=== PATIENT | female | born 2005 | race Caucasian/White ===

== ENCOUNTER 2024-05-05 17:30 | Emergency (ER) | payer OTHER, SELFPAY ==
[2024-05-05 17:40] VITALS: BP 124/79; PULSE 67; TEMP 36.7; O2SAT 99
--- NOTE | 2024-05-05 17:57 | ED_ITS ---
HPI - Abdominal Pain General Chief Complaint: Abdominal Pain Stated Complaint: Abdominal Pain Time Seen by Provider: 05/05/24 17:36 Source: patient Mode of arrival: walk-in Limitations: no limitations History of Present Illness HPI narrative: Patient is a 18-year-old female who presents to the emergency department for evaluation of urinary urgency that began today. She states she has the sensation that she has to urinate but is not producing much urine, she has now developed right lower quadrant pain and right flank pain this afternoon. Motrin taken 1 hour prior to arrival. She denies objective fevers. Yesterday she had multiple episodes of vomiting. Mother at bedside states that the patient was sick last week with upper respiratory symptoms. She has no other major medical history. The patient denies a possibility of . She has not had any blood in her urine. She has had nausea today but no additional episodes of emesis. Related Data Home Medications ?Medication ?Instructions ?Recorded ?Confirmed bupropion HCl 150 mg 24 hr tablet, 150 mg PO QDAY 05/05/24 05/05/24 extended release ibuprofen 200 mg tablet (Addaprin) 600 mg PO ONCE 05/05/24 05/05/24 norelgestromin 150 mcg-e.estradiol 1 patch topical Q7D 05/05/24 05/05/24 35 mcg/24 hr weekly transderm patch (Xulane) topiramate 100 mg tablet 250 mg PO .qhs 05/05/24 05/05/24 Previous Rx's ?Medication ?Instructions ?Recorded cephalexin 500 mg capsule 500 mg PO Q8H 7 days #21 caps 05/05/24 ketorolac 10 mg tablet 10 mg PO TID PRN pain #10 tabs 05/05/24 ondansetron 4 mg disintegrating 4 mg PO Q6H PRN nausea and 05/05/24 tablet vomiting #12 tabs oxycodone-acetaminophen 5 mg-325 1 tab PO Q6H PRN pain 4 days #15 05/05/24 mg tablet (Percocet) tabs tamsulosin 0.4 mg capsule (Flomax) 0.4 mg PO DAILY #7 caps 05/05/24 Allergies Allergy/AdvReac Type Severity Reaction Status Date / Time No Known Drug Allergies Allergy Verified 05/05/24 17:37 Review of Systems ROS Constitutional Denies: fever or chills Ears, nose, mouth, and throat Reports: nasal congestion; Denies: throat pain Cardiovascular Denies: chest pain Respiratory Reports: cough; Denies: shortness of breath Gastrointestinal Reports: abdominal pain, nausea and vomiting; Denies: diarrhea Genitourinary Reports: urinary urgency Musculoskeletal Reports: back pain; Denies: neck pain Integumentary/Breast Denies: rash Neurological Denies: numbness in extremities or weakness in extremities Hematologic/Lymphatic Denies: easy bruising or easy bleeding PFSH PFSH Social History Little interest or pleasure in doing things: not at all Feeling down, depressed, or hopeless: not at all Exam Narrative Exam Narrative: Gen.: Awake, alert, in no distress Head: Normocephalic, atraumatic ENT: Moist mucous membranes Respiratory: No respiratory distress Gastrointestinal: Abdomen is soft, nondistended and mildly tender in the suprapubic and right lower quadrant of the abdomen with no McBurney's point tenderness. No guarding or rebound. Patient has no pain out of proportion on exam, mild tenderness of the right flank with no CVA tenderness Extremities: Moves extremities equally Psych: Normal mood and affect Neuro: No focal neuro deficit Skin: Warm, dry, intact Constitutional Vital Signs, click to edit/add: Last Vital Signs Temp 98.1 F 05/05/24 17:40 Pulse 71 05/05/24 19:28 Resp 18 05/05/24 19:28 BP 141/83 05/05/24 19:28 Pulse Ox 99 05/05/24 19:28 O2 Del Method Room Air 05/05/24 19:28 Course Vital Signs Vital signs: Vital Signs Temperature 98.1 F 05/05/24 17:40 Pulse Rate 67 05/05/24 17:40 Respiratory Rate 18 05/05/24 17:40 Blood Pressure 124/79 05/05/24 17:40 Pulse Oximetry 99 05/05/24 17:40 Oxygen Delivery Method Room Air 05/05/24 17:40 Temperature 98.1 F 05/05/24 17:40 Pulse Rate 71 05/05/24 19:28 Respiratory Rate 18 05/05/24 19:28 Blood Pressure 141/83 05/05/24 19:28 Pulse Oximetry 99 05/05/24 19:28 Oxygen Delivery Method Room Air 05/05/24 19:28 MDM - Abdominal Pain MDM Narrative Medical decision making narrative: Patient treated with IV fluids, morphine, Zofran with improvement. She did have a return of pain and was remedicated with Toradol and Dilaudid. Laboratory studies reviewed and noted within normal limits, no evidence of sepsis and no significant infection noted. On CT, patient was found to have a 3 mm stone at the right UVJ with mild obstructive uropathy. She was given her results and will be placed on Percocet, Flomax, Toradol, Zofran, Keflex for home. Follow-up with urology and return to the emergency department if symptoms change or worsen. SUPERVISED APC VISIT, PHYSICIAN ATTESTATION: Based on the medical record the care appears appropriate. ? Medical Records Attestation: I reviewed the patient's medical records. Lab Data Attestation: I reviewed the patient's lab results. Labs: Lab Results 05/05/24 05/05/24 Range/Units 17:50 18:00 WBC 10.8 (4.0-11.0) 10^3/uL RBC 4.43 (4.20-5.40) 10^6/uL Hgb 13.3 (12.0-16.0) g/dL Hct 39.5 (36.0-48.0) % MCV 89.2 (81.0-99.0) fL MCH 30.0 (26.7-34.0) pg MCHC 33.7 (29.9-35.2) g/dL RDW 11.7 (11.0-15.0) % Plt Count 260 (150-450) 10^3/uL MPV 11.1 (9.5-13.5) fL Neut % (Auto) 54.1 (43.0-75.0) % Lymph % (Auto) 35.7 (20.5-60.0) % [place]cd[place] % (Auto) 8.2 (1.7-12.0) % Eos % (Auto) 1.3 (0.9-7.0) % Baso % (Auto) 0.6 (0.2-2.0) % Neut # (Auto) 5.8 (1.4-6.5) 10^3/uL Lymph # (Auto) 3.8 (1.2-3.8) 10^3/uL Mcdonough # (Auto) 0.9 H (0.3-0.8) 10^3/uL Eos # (Auto) 0.1 (0.0-0.7) 10^3/uL Baso # (Auto) 0.1 (0.0-0.1) 10^3/uL Abs Immat Gran (auto) 0.01 (0.00-0.03) 10^3/uL Imm/Tot Granulo (auto) 0.1 (0.0-0.5) % Sodium 142 (136-145) mmol/L Potassium 3.5 (3.5-5.1) mmol/L Chloride 105 (98-107) mmol/L Carbon Dioxide 25.4 (21.0-32.0) mmol/L Anion Gap 15.1 BUN 12.0 (7.0-18.0) mg/dL Creatinine 0.98 (0.55-1.02) mg/dL Est GFR ( Amer) >60 (>=60 mL/min/1.73m^2) Est GFR (Non-Af Amer) >60 (>=60 mL/min/1.73m^2) BUN/Creatinine Ratio 12.2 Glucose 85 (74-106) mg/dL Lactate 1.3 (0.4-2.0) mmol/L Calcium 9.3 (8.5-10.1) mg/dL Total Bilirubin 0.5 (0.2-1.0) mg/dL AST 12 L (15-37) U/L ALT 23 (14-59) U/L Alkaline Phosphatase 58 (46-116) U/L Total Protein 7.3 (6.4-8.2) g/dL Albumin 4.1 (3.4-5.0) g/dL Globulin 3.2 g/dL Albumin/Globulin Ratio 1.3 Urine Color Dk orange A (YELLOW) Urine Clarity Slightly cloudy A (CLEAR) Urine pH Ci (5.0-9.0) Ur Specific [place] 1.015 (1.005-1.025) Urine Protein Ci (NEG/TRACE) mg/dL Urine Glucose (UA) Ci (NEGATIVE) mg/dL Urine Ketones Ci (NEGATIVE) mg/dL Urine Occult Blood Ci (NEGATIVE) Urine Nitrite Ci (NEGATIVE) Urine Bilirubin Ci (NEGATIVE) Urine Urobilinogen Ci (0.2-1.0) EU/dL Ur Leukocyte Esterase Ci (NEGATIVE) Urine RBC 20-50 A (0-2) #/HPF Urine WBC 2-5 A (NONE SEEN) #/HPF Ur Squamous Epith Cells Few A (NONE/RARE) #/LPF Urine Crystals None seen (None Seen) #/HPF Urine Bacteria Small A (NONE SEEN) #/HPF Urine Casts None seen (NONE SEEN) #/LPF Urine Mucus Small A (NONE SEEN) Ur Culture Indicated? Yes-[facility] [place] Urine HCG, Qual Negative (NEGATIVE) Imaging Data CT scan - abdomen: Attestation: I have reviewed the pertinent imaging results. Radiologist's impression: 3 mm stone right ureterovesical junction causing mild obstructive uropathy Discharge Plan Discharge Chief Complaint: Abdominal Pain Clinical Impression: Kidney stone, Acute flank pain Patient Disposition: Home, Self-Care Time of Disposition Decision: 19:28 Condition: Good Prescriptions / Home Meds: New ketorolac 10 mg tablet 10 mg PO TID PRN (Reason: pain) Qty: 10 0RF oxycodone-acetaminophen [Percocet] 5-325 mg tablet 1 tab PO Q6H PRN (Reason: pain) 4 Days Qty: 15 0RF Rx Instructions: DX: N20.0 tamsulosin [Flomax] 0.4 mg capsule 0.4 mg PO DAILY Qty: 7 0RF cephalexin 500 mg capsule 500 mg PO Q8H 7 Days Qty: 21 0RF ondansetron 4 mg tablet,disintegrating 4 mg PO Q6H PRN (Reason: nausea and vomiting) Qty: 12 0RF No Action norelgestromin-ethin.estradiol [Xulane] 150-35 mcg/24 hr patch weekly 1 patch topical Q7D topiramate 100 mg tablet 250 mg PO .qhs bupropion HCl 150 mg tablet extended release 24 hr 150 mg PO QDAY ibuprofen [Addaprin] 200 mg tablet 600 mg PO ONCE Rx Instructions: 1 .5 hoursago Print Language: Indonesian Instructions: Kidney Stones (ED) Referrals: Ruthy Wilson MD [Physician] - 1 week DEEP COBIAN [Primary Care Provider] - 1 week
[2024-05-05] MEDS: 0.9 % SODIUM CHLORIDE 1,000 ML 1000 ML IV (18:03)
[2024-05-05] MEDS: ONDANSETRON PF 4 MG/2 ML VIAL IV (18:04)
[2024-05-05] MEDS: MORPHINE SULFATE 4 MG/ML VIAL IV (18:04)
[2024-05-05 18:13] LABS: Basophils Absolute Auto 0.1 10^3/uL (0.0-0.1); Basophils Percent Auto 0.6 % (0.2-2.0); Eosinophils Absolute Auto 0.1 10^3/uL (0.0-0.7); Eosinophils Percent Auto 1.3 % (0.9-7.0); Hematocrit 39.5 % (36.0-48.0); Hemoglobin 13.3 g/dL (12.0-16.0); Immature Granulocytes Abs Auto 0.01 10^3/uL (0.00-0.03); Immature Granulocytes Pct Auto 0.1 % (0.0-0.5); Lymphocytes Absolute Auto 3.8 10^3/uL (1.2-3.8); Lymphocytes Percent Auto 35.7 % (20.5-60.0); Mean Corpuscular HGB Conc 33.7 g/dL (29.9-35.2); Mean Corpuscular Volume 89.2 fL (81.0-99.0); Mean Platelet Volume 11.1 fL (9.5-13.5); Monocytes Absolute Auto 0.9 10^3/uL (0.3-0.8); Monocytes Percent Auto 8.2 % (1.7-12.0); Neutrophils Absolute Auto 5.8 10^3/uL (1.4-6.5); Neutrophils Percent Auto 54.1 % (43.0-75.0); Platelet Count 260 10^3/uL (150-450); Red Blood Count 4.43 10^6/uL (4.20-5.40); Red Cell Distribution Width 11.7 % (11.0-15.0); White Blood Count 10.8 10^3/uL (4.0-11.0)
[2024-05-05 18:16] LABS: Bilirubin Urine CI (NEGATIVE); Blood Urine CI (NEGATIVE); Color Urine DK ORANGE (YELLOW); Glucose Urine UA CI mg/dL (NEGATIVE); Ketones Urine CI mg/dL (NEGATIVE); Nitrite Urine CI (NEGATIVE); Protein Urine CI mg/dL (NEG/TRACE); Urobilinogen Urine CI EU/dL (0.2-1.0)
[2024-05-05 18:17] LABS: Clarity Urine SLIGHTLY CLOUDY (CLEAR)
[2024-05-05 18:19] LABS: Specific Gravity Urine 1.015 (1.005-1.025)
[2024-05-05 18:20] LABS: pH Urine CI (5.0-9.0)
[2024-05-05 18:25] LABS: Bacteria Urine SMALL #/HPF (NONE SEEN); Cast Seen? NONE SEEN #/LPF (NONE SEEN); Crystals Seen? None Seen #/HPF (None Seen); Leukocyte Esterase Urine CI (NEGATIVE); Mucus Urine SMALL (NONE SEEN); RBC Urine 20-50 #/HPF (0-2); Squamous Epithelial Cell Urine FEW #/LPF (NONE/RARE)
[2024-05-05 18:26] LABS: Urine Culture Indicated YES-FRMC
[2024-05-05 18:29] LABS: HCG Qualitative Urine* NEGATIVE (NEGATIVE); Internal Control Within Normal Limits
[2024-05-05 18:34] LABS: Alanine Aminotransferase 23 U/L (14-59); Albumin Globulin Ratio 1.3; Albumin Level 4.1 g/dL (3.4-5.0); Alkaline Phosphatase 58 U/L (46-116); Anion Gap 15.1; Aspartate Amino Transferase 12 U/L (15-37); BUN Creatinine Ratio 12.2; Bilirubin Total 0.5 mg/dL (0.2-1.0); Calcium 9.3 mg/dL (8.5-10.1); Carbon Dioxide 25.4 mmol/L (21.0-32.0); Chloride 105 mmol/L (98-107); Estimated GFR (African America >60 (>=60 mL/min/1.73m^2); Estimated GFR (Non-African Ame >60 (>=60 mL/min/1.73m^2); Globulin 3.2 g/dL; Glucose 85 mg/dL (74-106); Potassium 3.5 mmol/L (3.5-5.1); Sodium 142 mmol/L (136-145); Total Protein 7.3 g/dL (6.4-8.2)
[2024-05-05 18:36] LABS: Lactate/Lactic Acid 1.3 mmol/L (0.4-2.0)
[2024-05-05 19:28] VITALS: BP 141/83; PULSE 71; O2SAT 99
[2024-05-05] MEDS: HYDROMORPHONE HCL 0.5 MG/0.5 ML SYRINGE IV (19:38)
[2024-05-05] MEDS: KETOROLAC TROMETHAMINE 30 MG/ML VIAL IVP (19:38)
[2024-05-05 20:04] VITALS: BP 141/83; PULSE 71; O2SAT 99
== END 2024-05-05 20:11 | disposition home or self-care (01) ==
PROVIDERS: Physician Assistant; Emergency Provider Emergency Medicine; PCP Family Medicine
DX: N20.0 Calculus of kidney (principal); R10.31 Right lower quadrant pain; N20.1 Calculus of ureter
CPT/HCPCS: 36415; 74176; 80053; 81001; 83605; 84703; 85025; 87086; 96361; 96374; 96375; 99285; J1171; J1885; J2270; J2405